=== PATIENT | female | born 1950 | race Caucasian/White ===

== ENCOUNTER 2022-02-19 12:42 | Emergency (ER) | payer MEDICARE, BC ==
[~2022-02-19] VITALS: Ht 160 cm; Wt 75.5 kg
[~2022-02-19 12:42] MED LIST: AMBI10TA; ECOT325T5; ESTR1TAB; FLEC100T; LASI20TA; METO-745; MILKPOW; MULTIVIT; PERC5TAB8; PERC7.5T8; POTA20TA2; PRIL20CA; SYNT75TA; VIT D 2000; ZOCO20TA; ZOLO100T; [UNRECOGNIZED DRUG - OTHER]
[2022-02-19 13:41] LABS: BASO % 0.8 % (0.0-1.0); EOS # 0.1 10^3/uL (0.0-0.5); EOS % 1.3 % (0.0-3.0); HEMATOCRIT 41.3 % (36.0-47.0); HEMOGLOBIN 13.1 g/dl (12.0-15.5); LYMPH % 26.7 % (24.0-44.0); MEAN CORPUSCULAR HEMOGLOBIN 28.4 pg (27.0-33.0); MEAN CORPUSCULAR HGB CONC 31.7 g/dl (32.0-36.5); MEAN CORPUSCULAR VOLUME 89.6 fl (80.0-96.0); MONO # 0.5 10^3/uL (0.0-0.8); NEUTROPHILS # 2.2 10^3/uL (1.5-8.5); NEUTROPHILS % 57.9 % (36.0-66.0); PLATELET COUNT, AUTOMATED 138 10^3/uL (150-450); RED BLOOD COUNT 4.61 10^6/uL (4.00-5.40); WHITE BLOOD COUNT 3.9 10^3/uL (4.0-10.0)
[2022-02-19 13:53] LABS: INR 1.41; PROTHROMBIN TIME 17.7 SECONDS (12.7-14.5)
[2022-02-19 13:54] LABS: PARTIAL THROMBOPLASTIN TIME 34.1 SECONDS (25.9-37.0)
[2022-02-19 14:03] LABS: BLOOD UREA NITROGEN 16 MG/DL (7-18); CARBON DIOXIDE LEVEL 26 MEQ/L (21-32); CHLORIDE LEVEL 108 MEQ/L (98-107); CREATININE FOR GFR 0.82 MG/DL (0.55-1.30); GLOMERULAR FILTRATION RATE > 60.0 (>45); GLUCOSE, FASTING 79 MG/DL (70-100); POTASSIUM SERUM 4.7 MEQ/L (3.5-5.1); SODIUM LEVEL 140 MEQ/L (136-145)
[2022-02-19] MEDS ORDERED: ACETAMINOPHEN TAB 650MG DOSE (2X325MG) PO ONE (14:15)
[2022-02-19 16:05] VITALS: BP 141/64
== END 2022-02-19 16:07 | disposition home or self-care (01) ==
LOC: M ED 12:42
DX: S40.011A Contusion of right shoulder, initial encounter (principal); S00.90XA Unspecified superficial injury of unspecified part of head, initial encounter; M47.9 Spondylosis, unspecified; I10 Essential (primary) hypertension; I48.91 Unspecified atrial fibrillation; Z88.0 Allergy status to penicillin; Z88.5 Allergy status to narcotic agent